=== PATIENT | female | born 1975 | race American Indian/Alaskan Native ===

== ENCOUNTER 2019-03-18 05:50 | Emergency (ER) | payer SELFPAY ==
[2019-03-18 05:56] VITALS: BP 156/104
--- NOTE | 2019-03-18 08:36 | Emergency Department Report ---
ED General Adult HPI - General Chief complaint: Upper Respiratory Infection Stated complaint: CONGESTION/BLOOD PRESSURE CHECK Time Seen by Provider: 03/18/19 08:07 Source: patient Mode of arrival: Ambulatory Limitations: No Limitations - History of Present Illness Initial comments: Mrs. Duke is a very pleasant 44-year-old female with a history of i ntermittent hypertension and severe obesity who presents with congestion chills, Body aches ear pressure headache since Monday. She has taken [id number] medication. Medications include pseudoephedrine. She is concerned that pseudoephedrine may have caused her blood pressure to have increased. She had a history of sinus infection 2 years ago improved with Z-Darrell. Her primary physician provides hydrochlorothiazide every few months for a elevated blood pressure and water retention. However she's not been on this medication consistently. Also Mrs. Duke stated that she gained 15 pounds since November. She feels that is the reason for her blood pressure to be increased. -: Gradual (3 days), days(s) (3) Location: head Consistency: constant Improves with: none Worsens with: none Associated Symptoms: cough, malaise - Related Data Previous Rx's Medication Instructions Recorded Last Taken Type Fluticasone [Flonase] 1 spray NS QDAY 30 Days #1 bottle 03/18/19 Unknown Rx Loratadine 10 mg PO DAILY 30 Days #30 capsule 03/18/19 Unknown Rx Allergies Allergy/AdvReac Type Severity Reaction Status Date / Time No Known Allergies Allergy Unverified 03/18/19 05:57 ED Review of Systems ROS: Stated complaint: CONGESTION/BLOOD PRESSURE CHECK Other details as noted in HPI Comment: All other systems reviewed and negative Constitutional: malaise. denies: fever ENT: ear pain, throat pain, congestion Respiratory: cough. denies: shortness of breath, wheezing Cardiovascular: denies: chest pain Gastrointestinal: denies: abdominal pain Neurological: denies: numbness, paresthesias, confusion ED Past Medical Hx - Past Medical History Previous Medical History?: Yes Hx Hypertension: Yes (w/ and periodically takes HCTZ) - Surgical History Past Surgical History?: Yes Hx Cholecystectomy: Yes (2018) Additional Surgical History: Back surgery 2018 - Social History Smoking Status: Never Smoker - Medications Home Medications: Home Medications Medication Instructions Recorded Confirmed Last Taken Type Fluticasone [Flonase] 1 spray NS QDAY 30 Days #1 bottle 03/18/19 Unknown Rx Loratadine 10 mg PO DAILY 30 Days #30 capsule 03/18/19 Unknown Rx ED Physical Exam - General Limitations: No Limitations General appearance: alert, in no apparent distress - Head Head exam: Present: atraumatic, normocephalic - Eye Eye exam: Present: normal appearance. Absent: scleral icterus, conjunctival injection, nystagmus - ENT ENT exam: Present: normal exam, normal orophraynx, mucous membranes moist, TM's normal bilaterally - Neck Neck exam: Present: normal inspection, full ROM - Respiratory Respiratory exam: Present: normal lung sounds bilaterally. Absent: respiratory distress, wheezes, rales, rhonchi - Cardiovascular Cardiovascular Exam: Present: regular rate, normal rhythm, normal heart sounds. Absent: systolic murmur, diastolic murmur, rubs, gallop - GI/Abdominal GI/Abdominal exam: Present: soft, normal bowel sounds. Absent: distended, tenderness, guarding, rebound - Extremities Exam Extremities exam: Present: normal inspection - Back Exam Back exam: Present: normal inspection - Neurological Exam Neurological exam: Present: alert, oriented X3 - Psychiatric Psychiatric exam: Present: normal affect, normal mood - Skin Skin exam: Present: warm, dry, intact, normal color. Absent: rash ED Course Vital Signs 03/18/19 03/18/19 05:54 06:04 Temperature 98.0 F 98.0 F Pulse Rate 78 75 Respiratory 18 18 Rate Blood Pressure 156/104 156/104 O2 Sat by Pulse 100 100 Oximetry ED Medical Decision Making - Medical Decision Making 1. URI, sinus headache, rx: loratadine, flonase 2. HTN: I provided verbal education regarding lifestyle changes and medication. Also discussed the use of pseudophredine Critical care attestation.: If time is entered above; I have spent that time in minutes in the direct care of this critically ill patient, excluding procedure time. ED Disposition Clinical Impression: URI (upper respiratory infection), Sinus headache, Hypertensive urgency Disposition: DC-01 TO HOME OR SELFCARE Is pt being admited?: No Does the pt Need Aspirin: No Condition: Stable Instructions: Hypertension (ED), Acute Headache (ED), Upper Respiratory Inf ection (ED) Prescriptions: Fluticasone [Flonase] 1 spray NS QDAY 30 Days #1 bottle Loratadine 10 mg PO DAILY 30 Days #30 capsule Referrals: KENNEDY JAMES MD [Staff Physician] - 3-5 Days Forms: Work/School Release Form(ED)
== END 2019-03-18 08:47 | disposition home or self-care (01) ==
LOC: ED 05:50
DX: J06.9 Acute upper respiratory infection, unspecified (principal); I16.0 Hypertensive urgency; I10 Essential (primary) hypertension; Z90.49 Acquired absence of other specified parts of digestive tract; Z98.890 Other specified postprocedural states